=== PATIENT | male | born 1950 | race Caucasian/White ===

== ENCOUNTER 2019-05-12 11:48 | Emergency (ER) | payer BC, MEDICARE ==
[2019-05-12] MEDS ORDERED: Sodium Chloride 0.9% 10 ML Syringe FLUSH PRN (12:07)
[2019-05-12] MEDS ORDERED: diphenhydrAMINE 50 MG/ML SDV IVPUSH ONE (12:16)
[2019-05-12] MEDS ORDERED: Metoclopramide 10 MG/2 ML SDV IVPUSH ONE (12:16)
[2019-05-12] MEDS ORDERED: Ketorolac 30 MG/ML SDV IVPUSH ONE (12:16)
[2019-05-12] MEDS ORDERED: Sodium Chloride 0.9% 1,000 ML IV ONE (12:17)
--- NOTE | 2019-05-12 12:27 | EDM.PDOC ---
ED HPI GENERAL MEDICAL PROBLEM - General Chief Complaint: Headache Stated Complaint: HEADACHE AND BODY ACHES AND DIZZY Time Seen by Provider: 05/12/19 12:02 Source of Information: Reports: Patient, RN Notes Reviewed History Limitations: Reports: No Limitations - History of Present Illness INITIAL COMMENTS - FREE TEXT/NARRATIVE: Patient is a 69-year-old male who presents to the ED for evaluation of a headache, body aches, and generalized dizziness. Patient notes he has been sick for around 2 weeks now. He was initially evaluated by the [facility], and states he was placed on a azithromycin for an unknown reason, but he states he has not felt any better. He complains of a sharp stabbing headache , that is in his temples, and he states when he tries to walk or do any sort of activity, he gets sharp achy pains that radiate up and down his spine and legs. He has a mild fever at time of triage at 99.1 F. He states he does feel chilled at home, and like he just cannot keep warm. He does note that he has been having some issues with generalized dizziness when he stands as well. He was having some diarrhea and vomiting during this time as well, but he has not had any of this for about 3 or 4 days. Patient notes he has prostate cancer and states he is on chemo for this as well. Otherwise he denies any past medical history, surgeries, or allergies. He notes that he does smoke cigars from time to time, but has not had 1 in a while, since he has been feeling ill. He does not complain much for cough. He is not had much of an appetite, but states he has been trying to drink some fluids. He did not get a flu shot this year. Headache Pain Score (Numeric/FACES): 10 - Related Data Allergies Allergy/AdvReac Type Severity Reaction Status Date / Time No Known Allergies Allergy Verified 05/12/19 11:57 Home Meds: Home Meds Abiraterone Acetate [Zytiga] 2 tab PO DAILY 05/12/19 [History] predniSONE [Prednisone] 5 mg PO DAILY 05/12/19 [History] Past Medical History Oncologic (Cancer) History: Reports: Prostate Social & Family History - Tobacco Use Smoking Status *Q: Former Smoker Used Tobacco, but Quit: Yes Month/Year Tobacco Last Used: 2 months - Caffeine Use Caffeine Use: Reports: Coffee, Soda, Tea - Recreational Drug Use Recreational Drug Use: No ED ROS GENERAL - Review of Systems Review Of Systems: See Below Constitutional: Reports: Fever, Chills, Malaise (generalized), Decreased Appetite HEENT: Denies: Throat Pain Respiratory: Reports: Shortness of Breath (mild). Denies: Cough Cardiovascular: Denies: Chest Pain GI/Abdominal: Reports: Diarrhea, Decreased Appetite, Nausea, Vomiting. Denies: Abdominal Pain : Denies: Dysuria, Frequency, Urgency Musculoskeletal: Reports: Back Pain (generalized) Neurological: Reports: Dizziness, Headache. Denies: Confusion - Physical Exam Exam: See Below Exam Limited By: No Limitations General Appearance: Alert, WD/WN, No Apparent Distress Eye Exam: Bilateral Eye: EOMI, Normal Inspection, PERRL Ears: Normal External Exam, Normal Canal, Hearing Grossly Normal, Normal TMs Nose: Normal Inspection Throat/Mouth: Normal Inspection, Normal Lips, Normal Teeth, Normal Gums, Normal Oropharynx (pt has patchy white spots on tongue, states that he has thrush and usually takes nystatin for this.), Normal Voice, No Airway Compromise Head Exam: Atraumatic, Normocephalic Neck: Normal Inspection Respiratory/Chest: No Respiratory Distress, Lungs Clear, No Accessory Muscle Use , Chest Non-Tender, Decreased Breath Sounds (diffuse bilaterally) Cardiovascular: Normal Peripheral Pulses, Regular Rate, Rhythm, No Edema, No Murmur GI/Abdominal: Normal Bowel Sounds, Soft, Non-Tender, No Distention, No Mass Neuro Exam (Abbreviated): Alert, Oriented, Normal Cognition, Normal Gait, No Motor/Sensory Deficits Extremities: Normal Inspection, Normal Capillary Refill Psychiatric: Normal Affect, Normal Mood Skin Exam: Warm, Dry, Intact, Normal Color (skin is slightly dusky in general appearance), No Rash Course - Vital Signs Last Recorded V/S: Last Vital Signs Temp 98.5 F 05/12/19 14:44 Pulse 61 05/12/19 12:02 Resp 20 05/12/19 12:02 BP 150/73 H 05/12/19 12:02 Pulse Ox 95 05/12/19 12:02 Orthostatic Blood Pressure [ 139/74 Standing] Orthostatic Blood Pressure [ 140/77 Sitting] Orthostatic Blood Pressure [ 146/70 Supine] - Orders/Labs/Meds Orders: Active Orders 24 hr Category Date Time Status Orthostatic Vital Signs [RC] ASDIRECTED Care 05/12/19 12:07 Ordered Peripheral IV Care [RC] . DIRECTED Care 05/12/19 12:07 Ordered Sodium Chloride 0.9% [Saline Flush] Med 05/12/19 12:07 Ordered 10 ml FLUSH ASDIRECTED PRN Peripheral IV Insertion Adult [OM.PC] Stat Oth 05/12/19 12:07 Ordered Medication Orders Sodium Chloride (Saline Flush) 10 ml FLUSH ASDIRECTED PRN PRN Reason: Keep Vein Open Last Admin: 05/12/19 12:35 Dose: 10 ml Labs: Laboratory Tests 05/12/19 05/12/19 05/12/19 Range/Units 12: 12:25 15:10 WBC 7.30 (4.23-9.07) K/mm3 RBC 4.10 L (4.63-6.08) M/mm3 Hgb 13.2 L (13.7-17.5) gm/dl Hct 37.5 L (40.1-51.0) % MCV 91.5 (79.0-92.2) fl MCH 32.2 (25.7-32.2) pg MCHC 35.2 (32.2-35.5) g/dl RDW Std Deviation 40.7 (35.1-43.9) fL Plt Count 267 (163-337) K/mm3 MPV 9.0 L (9.4-12.3) fl Neutrophils % (Manual) 74 H (40-60) % Band Neutrophils % 2 (0-10) % Lymphocytes % (Manual) 13 L (20-40) % Atypical Lymphs % 0 % Monocytes % (Manual) 10 (2-10) % Eosinophils % (Manual) 1 (0.8-7.0) % Basophils % (Manual) 0 L (0.2-1.2) Platelet Estimate Adequate RBC Morph Comment Normal Sodium 134 L (136-145) mEq/L Potassium 2.6 L (3.5-5.1) mEq/L Chloride 97 L (98-107) mEq/L Carbon Dioxide 27 (21-32) mEq/L Anion Gap 12.6 (5-15) BUN 12 (7-18) mg/dL Creatinine 0.8 (0.7-1.3) mg/dL Est Cr Clr Drug Dosing 82.63 mL/min Estimated GFR (MDRD) > 60 (>60) mL/min BUN/Creatinine Ratio 15.0 (14-18) Glucose 107 (80-115) mg/dL Calcium 8.2 L (8.5-10.1) mg/dL Total Bilirubin 0.9 (0.2-1.0) mg/dL AST 11 L (15-37) U/L ALT 19 (16-63) U/L Alkaline Phosphatase 63 (46-116) U/L Total Protein 6.6 (6.4-8.2) g/dl Albumin 3.4 (3.4-5.0) g/dl Globulin 3.2 gm/dL Albumin/Globulin Ratio 1.1 (1-2) Urine Color Light yellow (Yellow) Urine Appearance Clear (Clear) Urine pH 7.0 (5.0-8.0) Ur Specific [place] 1.015 (1.005-1.030) Urine Protein Negative (Negative) Urine Glucose (UA) Negative (Negative) Urine Ketones Negative (Negative) Urine Occult Blood 1+ H (Negative) Urine Nitrite Negative (Negative) Urine Bilirubin Negative (Negative) Urine Urobilinogen 0.2 (0.2-1.0) Ur Leukocyte Esterase Negative (Negative) Urine RBC 5-10 H (0-5) /hpf Urine WBC 0-5 (0-5) /hpf Ur Squamous Epith Cells 5-10 H (0-5) /hpf Urine Bacteria Rare (FEW) /hpf Urine Mucus Not seen (FEW) /hpf Meds: Medications Generic Name Dose Route Start Last Admin Trade Name Freq PRN Reason Stop Dose Admin Sodium Chloride 10 ml 05/12/19 12:07 05/12/19 12:35 Saline Flush FLUSH 10 ml ASDIRECTED PRN Administration Keep Vein Open Discontinued Medications Generic Name Dose Route Start Last Admin Trade Name Freq PRN Reason Stop Dose Admin Diphenhydramine HCl 25 mg 05/12/19 12:16 05/12/19 12:35 Benadryl IVPUSH 05/12/19 12:17 25 mg ONETIME ONE Administration Sodium Chloride 1,000 mls @ 999 mls/hr 05/12/19 12:17 05/12/19 12:33 Normal Saline IV 05/12/19 13:17 999 mls/hr ONETIME ONE Administration Potassium Chloride 10 meq/ 0 mls @ 100 mls/hr 05/12/19 13:20 05/12/19 13:34 Premix IV 05/12/19 13:21 100 mls/hr ONETIME ONE Administration Ketorolac Tromethamine 30 mg 05/12/19 12:16 05/12/19 12:33 Toradol IVPUSH 05/12/19 12:17 30 mg ONETIME ONE Administration Metoclopramide HCl 10 mg 05/12/19 12:16 05/12/19 12:33 Reglan IVPUSH 05/12/19 12:17 10 mg ONETIME ONE Administration Potassium Chloride 40 meq 05/12/19 13:19 05/12/19 13:32 Klor-Con M20 PO 05/12/19 13:20 40 meq ONETIME ONE Administration - Re-Assessments/Exams Free Text/Narrative Re-Assessment/Exam: 05/12/19 12:29 Patient presents to the ED for multiple complaints. IV will be placed, orthostatic vital signs will be taken, to determine fluid status, and possible dehydration. CBC, CMP will be drawn as well, IV fluids, 30 mg IV Toradol, 10 mg IV Reglan, and 25 mg IV Benadryl for headache and pain relief. 05/12/19 13:39 Labs are done, patient is negative for influenza at this time, however clinical course was suspicious for more of influenza type illness. Chest x-ray demonstrates no acute abnormality, possible emphysematous change. Patient's white blood cell count is not elevated, hemoglobin mildly low, but not worrisome at this time. Patient's potassium is low at 2.6, he will be given 40 mEq p.o., and 10 mEq IV as well for supplementation. Otherwise labs are essentially within normal limits. Patient notes that he did get good symptomatic relief from the medications given already. 05/12/19 15:44 Patient reassessed at bedside, states he is feeling much better, he did eat a turkey sandwich with no problem while in the ER. Will be discharged home with general recommendations. He was given a educational handout on foods that are rich in potassium for further supplementation. Departure - Departure Time of Disposition: 15:44 Disposition: Home, Self-Care 01 Condition: Fair Clinical Impression: Influenza-like symptoms, Hypokalemia Headache Qualifiers: Headache type: other headache syndrome Qualified Code(s): G44.89 - Other headache syndrome - Discharge Information *PRESCRIPTION DRUG MONITORING PROGRAM REVIEWED*: No *COPY OF PRESCRIPTION DRUG MONITORING REPORT IN PATIENT MEGAN: No Instructions: Dehydration, Adult, [id number] Referrals: Deepak Spaulding MD [Primary Care Provider] - Forms: ED Department Discharge Additional Instructions: You were evaluated in the ER today regarding your generalized dizziness, headache, and body aches. Laboratory evaluation demonstrated that you were negative for influenza, however your symptoms are suspicious for this, your laboratory evaluation demonstrated no acute bacterial infection, but it did demonstrate a low potassium level. You were given 40 mEq p.o. potassium and 10 mEq IV potassium for supplementation. You were also given a educational handout on foods that are rich in potassium, please try to adjust your diet accordingly. Recommend that you follow-up with your regular care provider in the next week or so, and have a metabolic panel redrawn, to make sure that your potassium level is getting back to within normal limits. You may take [id number] ibuprofen 600 mg or Tylenol 500 mg every 6 hours as needed for further symptom relief. Please do not exceed 3200 mg ibuprofen or 4000 mg Tylenol in a 24-hour time span. Please try to increase your oral fluid intake, and try to eat as many nutritious meals as possible as this will help the body heal. Please return to the ER at any time if your symptoms change or worsen. Sepsis Event Note - Evaluation Sepsis Screening Result: No Definite Risk - Focused Exam Vital Signs: Vital Signs Temp Pulse Resp BP Pulse Ox 05/12/19 14:44 98.5 F 05/12/19 13:40 99.9 F 05/12/19 12:30 101 F H 05/12/19 12:02 99.1 F 61 20 150/73 H 95 Date Exam was Performed: 05/12/19 Time Exam was Performed: 15:44 - My Orders Last 24 Hours: My Active Orders 05/12/19 12:07 Orthostatic Vital Signs [RC] ASDIRECTED Peripheral IV Care [RC] . DIRECTED Sodium Chloride 0.9% [Saline Flush] 10 ml FLUSH ASDIRECTED PRN Peripheral IV Insertion Adult [OM.PC] Stat - Assessment/Plan Last 24 Hours: My Active Orders 05/12/19 12:07 Orthostatic Vital Signs [RC] ASDIRECTED Peripheral IV Care [RC] . DIRECTED Sodium Chloride 0.9% [Saline Flush] 10 ml FLUSH ASDIRECTED PRN Peripheral IV Insertion Adult [OM.PC] Stat
[2019-05-12] MEDS ORDERED: Potassium Chloride 20 MEQ Tab.ER PO ONE (13:19)
[2019-05-12] MEDS ORDERED: Potassium Chloride 10 MEQ in Premix Bag 1 BAG IV ONE (13:20)
--- NOTE | 2019-05-12 13:36 | CR ---
Chest: PA and lateral views of the chest were obtained. Comparison: No prior chest imaging. Heart size is at the upper limits of normal. Tortuous thoracic aorta is seen. Lungs are clear with no acute parenchymal change. Lungs are slightly hyperinflated. Scattered disc space narrowing noted within the spine with endplate spurring is seen. Minimal scoliosis is also noted within the spine. Impression: 1. Possible emphysematous change. 2. Nothing acute is appreciated on 2 view chest x-ray. Diagnostic code #2 This report was dictated in [place] Standard Time
== END 2019-05-12 16:08 | disposition home or self-care (01) ==
LOC: JD.ED 11:48
DX: G44.89 Other headache syndrome (principal); E87.6 Hypokalemia; Z87.891 Personal history of nicotine dependence; Z79.899 Other long term (current) drug therapy
CPT/HCPCS: 36415; 71046; 80053; 81001; 85007; 85027; 87804; 96361; 96365; 96375; 99284; A9270; J1200; J1885; J2765; J3480; J7030

== ENCOUNTER 2020-04-01 09:37 | Emergency (ER) | payer BC, MEDICARE ==
--- NOTE | 2020-04-01 10:14 | EDM.PDOC ---
ED HPI GENERAL MEDICAL PROBLEM - General Chief Complaint: Abdominal Pain Stated Complaint: CONSTIPATION Time Seen by Provider: 04/01/20 10:13 Source of Information: Reports: Patient History Limitations: Reports: No Limitations - History of Present Illness INITIAL COMMENTS - FREE TEXT/NARRATIVE: 70-year-old male who is not the best historian presents to the ED complaining of diffuse severe abdominal pain. He thinks that he is constipated because of the pain medications that he has been taking. 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 Apparently this just occurred within the last week or 2. He is taking pain medication for bone metastatic disease. He has not received any radiotherapy. He states he has not had a decent bowel movement for at least 3 days. His appetite remains extremely poor. He is generally weak. He denies any nausea or vomiting. On my assessment he felt mildly warm palpation but he denies any chills at home. On my examination he feels a bit warm to palpation. Onset: Gradual Onset Date: 03/31/20 Duration: Day(s):, Getting Worse Location: Reports: Abdomen ([facility] abdominal pain primarily lower and periumbilical. There is a cramping component or colicky component to the pain but otherwise its constant deep ache) Quality: Reports: Ache, Pressure, Other Severity: Severe (Aching pain mid abdomen) Improves with: Reports: None ( 10 out of 10) Worsens with: Reports: Other Context: Reports: Other (Recently diagnosed with prostate cancer with diffuse metastatic bone disease). Denies: Activity, Exercise (Worse with certain movements and certainly worsens by eating.), Lifting, Sick Contact, Trauma Associated Symptoms: Reports: Cough, Loss of Appetite, Malaise, Nausea/Vomiting. Denies: Confusion, Chest Pain, cough w sputum, Diaphoresis, Fever/Chills, Headaches, Rash, Seizure (Nausea with no vomiting), Shortness of Breath, Syncope Treatments PENSION AGENT: Reports: Other (see below) (I think he is taking a narcotic called Percocet. He is not sure) Bilateral Abdomen Pain Score (Numeric/FACES): 8 - Related Data Allergies Allergy/AdvReac Type Severity Reaction Status Date / Time No Known Allergies Allergy Verified 04/01/20 09:54 Home Meds: Home Meds Abiraterone Acetate [Zytiga] 1,000 mg PO DAILY 04/01/20 [History] Albuterol [Take Home: Albuterol 18 GM, 1 INH Pack] 04/01/20 [History] Ascorbate Calcium [Vitamin C] 500 mg PO DAILY 04/01/20 [History] Budesonide/Formoterol [Symbicort 160-4.5 MCG] 04/01/20 [History] Calcium Carbonate [Calcium] 500 mg PO DAILY 04/01/20 [History] Cefuroxime [Ceftin] 250 mg PO BID 04/01/20 [History] Cholecalciferol (Vitamin D3) [Vitamin D3] 1,000 unit PO DAILY 04/01/20 [History] Famotidine 20 mg PO BID 04/01/20 [History] LORazepam [Lorazepam] 1 mg PO QID PRN 04/01/20 [History] Ondansetron [Ondansetron ODT] 8 mg PO DAILY 04/01/20 [History] Potassium Chloride 40 meq PO DAILY 04/01/20 [History] Tamsulosin HCl 0.4 mg PO BID 04/01/20 [History] predniSONE [Prednisone] 5 mg PO DAILY 04/01/20 [History] traMADol [Ultram] 50 mg PO PRN 04/01/20 [History] Past Medical History Gastrointestinal History: Reports: Chronic Constipation Genitourinary History: Reports: Other (See Below) Other Genitourinary History: chronic indwelling oneil Oncologic (Cancer) History: Reports: Bone, Liver, Prostate (Apparently just diagnosed with prostate cancer with diffuse bone and liver metastatic disease within the last week to 10 days) Social & Family History - Family History Family Medical History: No Pertinent Family History - Caffeine Use Caffeine Use: Reports: Coffee - Recreational Drug Use Recreational Drug Use: No - Living Situation & Occupation Living situation: Reports: Occupation: Unemployed [employer] [facility] - Review of Systems Review Of Systems: See Below Constitutional: Reports: Malaise, Weakness, Fatigue, Decreased Appetite, Weight Loss. Denies: Fever, Chills HEENT: Reports: No Symptoms Respiratory: Reports: Shortness of Breath. Denies: Wheezing, Cough Cardiovascular: Reports: Dyspnea on Exertion, Lightheadedness. Denies: Chest Pain, Blood Pressure Problem, Claudication, Edema, Orthopnea Endocrine: Reports: Fatigue GI/Abdominal: Reports: Abdominal Pain (See history of present illness), Constipation, Decreased Appetite. Denies: Hematemesis, Hematochezia, Melena : Reports: Frequency. Denies: Dysuria Musculoskeletal: Reports: Back Pain, Joint Pain (Ribs and upper and mid back) Skin: Reports: No Symptoms Neurological: Reports: No Symptoms, Weakness (Neurolysed weakness.) Psychiatric: Reports: No Symptoms Hematologic/Lymphatic: Reports: No Symptoms Immunologic: Reports: No Symptoms ED EXAM, GI/ABD - Physical Exam Exam: See Below Exam Limited By: No Limitations (Not the best historian.) General Appearance: Alert, Moderate Distress, Thin, Other (Appears to be in a good deal of pain. Temperature is 36.4 heart rate 99 in sinus respiratory it is 14 BP 109/92 O2 sats 100% on room air.) Eyes: Right: Normal Appearance (Light scleral icterus appreciated.) Throat/Mouth: Other Head: Atraumatic, Normocephalic, Other (Lung is dry and coated) Neck: Normal Inspection, Supple, Non-Tender, Full Range of Motion, Other (No cervical adenopathy). No: Carotid Bruit, Lymphadenopathy (L), Lymphadenopathy (R) Respiratory/Chest: No Respiratory Distress, Lungs Clear, Normal Breath Sounds, Chest Non-Tender Cardiovascular: Normal Peripheral Pulses, No Edema, No Gallop, No Murmur, No Rub, Tachycardia (I got tachycardia of 108/min.) GI/Abdominal Exam: Soft (Sounds are decreased from the norm.), Pelvis Stable, Tender, Abnormal Bowel Sounds, Hepatomegaly (Possible palpable liver fingerbreadths below the right costal margin.). No: Guarding (Is mostly periumbilically and left lower quadrant), Rigid, Rebound Back Exam: Normal Inspection, Decreased Range of Motion. No: CVA Tenderness (L), CVA Tenderness (R) Extremities: Normal Inspection, Normal Range of Motion, Non-Tender, No Pedal Edema Neurological: Alert, Oriented, CN II-XII Intact, Normal Cognition Psychiatric: Normal Affect, Normal Mood Skin Exam: Warm, Dry, Intact, Normal Color, No Rash Course - Vital Signs Last Recorded V/S: Last Vital Signs Temp 36.4 C 04/01/20 09:51 Pulse 99 04/01/20 09:51 Resp 14 04/01/20 09:51 BP 109/92 H 04/01/20 09:51 Pulse Ox 100 04/01/20 09:51 - Orders/Labs/Meds Orders: Active Orders 24 hr Category Date Time Status Abdomen 1V Flat [CR] Stat Exams 04/01/20 10:13 Taken CULTURE BLOOD [BC] Stat Lab 04/01/20 14:12 Received CULTURE BLOOD [BC] Stat Lab 04/01/20 14:19 Received CULTURE URINE [RM] Stat Lab 04/01/20 11:46 Received Dextrose 5%-0.9% NaCl [Dextrose 5%-Normal Saline] 1,000 Med 04/01/20 11:00 Active ml IV ASDIRECTED cefTRIAXone [Rocephin] 2 gm Med 04/01/20 13:30 Active Sodium Chloride 0.9% [Normal Saline] 100 ml IV Q24H Blood Culture x2 Reflex Set [OM.PC] Stat Oth 04/01/20 13:23 Ordered Medication Orders Dextrose/Sodium Chloride (Dextrose 5%-Normal Saline) 1,000 mls @ 999 mls/hr IV ASDIRECTED KIRSTY Last Admin: 04/01/20 11:20 Dose: 999 mls/hr Documented by: ANNABEL Ceftriaxone Sodium 2 gm/ (Sodium Chloride) 100 mls @ 200 mls/hr IV Q24H KIRSTY Last Admin: 04/01/20 13:52 Dose: 200 mls/hr Documented by: BENIGNO Labs: Laboratory Tests 04/01/20 04/01/20 04/01/20 Range/Units 11:20 11:20 11:28 WBC 16.82 H (4.23-9.07) K/mm3 RBC 4.32 L (4.63-6.08) M/mm3 Hgb 13.2 L (13.7-17.5) gm/dl Hct 39.9 L (40.1-51.0) % MCV 92.4 H (79.0-92.2) fl MCH 30.6 (25.7-32.2) pg MCHC 33.1 (32.2-35.5) g/dl RDW Std Deviation 47.2 H (35.1-43.9) fL Plt Count 414 H D (163-337) K/mm3 MPV 9.4 (9.4-12.3) fl Neut % (Auto) 85.1 H (34.0-67.9) % Lymph % (Auto) 6.4 L (21.8-53.1) % Stark % (Auto) 7.6 (5.3-12.2) % Eos % (Auto) 0.4 L (0.8-7.0) Baso % (Auto) 0.1 (0.1-1.2) % Neut # (Auto) 14.33 H (1.78-5.38) K/mm3 Lymph # (Auto) 1.08 L (1.32-3.57) K/mm3 Stark # (Auto) 1.27 H (0.30-0.82) K/mm3 Eos # (Auto) 0.07 (0.04-0.54) K/mm3 Baso # (Auto) 0.01 (0.01-0.08) K/mm3 Manual Slide Review Abnormal smear Sodium 134 L (136-145) mEq/L Potassium 3.4 L (3.5-5.1) mEq/L Chloride 100 (98-107) mEq/L Carbon Dioxide 21 (21-32) mEq/L Anion Gap 16.4 H (5-15) BUN 8 (7-18) mg/dL Creatinine 0.6 L (0.7-1.3) mg/dL Est Cr Clr Drug Dosing TNP Estimated GFR (MDRD) > 60 (>60) mL/min BUN/Creatinine Ratio 13.3 L (14-18) Glucose 92 (80-115) mg/dL Lactic Acid (0.4-2.0) mmol/L Calcium 8.6 (8.5-10.1) mg/dL Total Bilirubin 0.7 (0.2-1.0) mg/dL AST 252 H (15-37) U/L ALT 124 H (16-63) U/L Alkaline Phosphatase 300 H (46-116) U/L C-Reactive Protein 7.5 H* (<1.0) mg/dL Total Protein 6.5 (6.4-8.2) g/dl Albumin 2.5 L (3.4-5.0) g/dl Globulin 4.0 gm/dL Albumin/Globulin Ratio 0.6 L (1-2) Lipase 235 (73-393) U/L Urine Color (Yellow) Urine Appearance (Clear) Urine pH (5.0-8.0) Ur Specific Enders (1.005-1.030) Urine Protein (Negative) Urine Glucose (UA) (Negative) Urine Ketones (Negative) Urine Occult Blood (Negative) Urine Nitrite (Negative) Urine Bilirubin (Negative) Urine Urobilinogen (0.2-1.0) Ur Leukocyte Esterase (Negative) Urine RBC (0-5) /hpf Urine WBC (0-5) /hpf Ur Squamous Epith Cells (0-5) /hpf Urine Bacteria (FEW) /hpf Urine Mucus (FEW) /hpf 04/01/20 04/01/20 Range/Units 11:46 14:12 WBC (4.23-9.07) K/mm3 RBC (4.63-6.08) M/mm3 Hgb (13.7-17.5) gm/dl Hct (40.1-51.0) % MCV (79.0-92.2) fl MCH (25.7-32.2) pg MCHC (32.2-35.5) g/dl RDW Std Deviation (35.1-43.9) fL Plt Count (163-337) K/mm3 MPV (9.4-12.3) fl Neut % (Auto) (34.0-67.9) % Lymph % (Auto) (21.8-53.1) % Stark % (Auto) (5.3-12.2) % Eos % (Auto) (0.8-7.0) Baso % (Auto) (0.1-1.2) % Neut # (Auto) (1.78-5.38) K/mm3 Lymph # (Auto) (1.32-3.57) K/mm3 Stark # (Auto) (0.30-0.82) K/mm3 Eos # (Auto) (0.04-0.54) K/mm3 Baso # (Auto) (0.01-0.08) K/mm3 Manual Slide Review Sodium (136-145) mEq/L Potassium (3.5-5.1) mEq/L Chloride (98-107) mEq/L Carbon Dioxide (21-32) mEq/L Anion Gap (5-15) BUN (7-18) mg/dL Creatinine (0.7-1.3) mg/dL Est Cr Clr Drug Dosing Estimated GFR (MDRD) (>60) mL/min BUN/Creatinine Ratio (14-18) Glucose (80-115) mg/dL Lactic Acid 1.3 (0.4-2.0) mmol/L Calcium (8.5-10.1) mg/dL Total Bilirubin (0.2-1.0) mg/dL AST (15-37) U/L ALT (16-63) U/L Alkaline Phosphatase (46-116) U/L C-Reactive Protein (<1.0) mg/dL Total Protein (6.4-8.2) g/dl Albumin (3.4-5.0) g/dl Globulin gm/dL Albumin/Globulin Ratio (1-2) Lipase (73-393) U/L Urine Color Light yellow (Yellow) Urine Appearance Cloudy H (Clear) Urine pH 7.0 (5.0-8.0) Ur Specific Enders 1.025 (1.005-1.030) Urine Protein 2+ H (Negative) Urine Glucose (UA) Negative (Negative) Urine Ketones 1+ H (Negative) Urine Occult Blood 2+ H (Negative) Urine Nitrite Negative (Negative) Urine Bilirubin 1+ H (Negative) Urine Urobilinogen 0.2 (0.2-1.0) Ur Leukocyte Esterase 3+ H (Negative) Urine RBC 10-20 H (0-5) /hpf Urine WBC 50-75 H (0-5) /hpf Ur Squamous Epith Cells 0-5 (0-5) /hpf Urine Bacteria Moderate H (FEW) /hpf Urine Mucus Not seen (FEW) /hpf Meds: Medications Generic Name Dose Route Start Last Admin Trade Name Freq PRN Reason Stop Dose Admin Dextrose/Sodium Chloride 1,000 mls @ 999 mls/hr 04/01/20 11:00 04/01/20 11:20 Dextrose 5%-Normal Saline IV 999 mls/hr ASDIRECTED KIRSTY Administration Ceftriaxone Sodium 2 gm/ 100 mls @ 200 mls/hr 04/01/20 13:30 04/01/20 13:52 Sodium Chloride IV 200 mls/hr Q24H KIRSTY Administration Discontinued Medications Generic Name Dose Route Start Last Admin Trade Name Freq PRN Reason Stop Dose Admin Acetaminophen 650 mg 04/01/20 13:22 04/01/20 13:53 Tylenol PO 04/01/20 13:23 650 mg NOW STA Administration Hydromorphone HCl 0.5 mg 04/01/20 10:47 04/01/20 11:21 Dilaudid IVPUSH 04/01/20 10:48 0.5 mg ONETIME ONE Administration Ondansetron HCl 4 mg 04/01/20 10:30 04/01/20 10:40 Zofran Odt PO 04/01/20 10:31 4 mg ONETIME ONE Administration - Radiology Interpretation Free Text/Narrative:: 70-year-old male attends the ED due to severe generalized abdominal pain. He believes that he may be constipated because of the medications he is taking for pain. Patient was recently diagnosed with prostate cancer and unfortunately has diffuse metastatic disease including his bones and liver. He believes his pain medication is Percocet tablets. He has not had a bowel movement for 3 days. He is also lost his appetite. He is a poor historian he did not bring his medications with him. He is and lives alone currently unemployed. Plan he feels slightly warm to me. Routine labs will be done including a serum lipase and a urinalysis. He is not coughing or showing other signs of COVID-19 illness. Blood pressure remains at 117/87. KUB to be done. - Re-Assessments/Exams Free Text/Narrative Re-Assessment/Exam: 04/01/20 11:29 KUB reveals no free air. There is gas distending both portions of the small bowel and large bowel with no bowel obstruction. There is a small amount of stool at the hepatic flexure only. No significant constipation. 04/01/20 13:17 White count is elevated at 16.82. There is a left shift of 85.1% neutrophils. Hemoglobin is 13.2 hematocrit is 39.9. Platelet count is elevated at 414,000. The slide shows neutrophilia and lymphopenia. Sodium is 134 with a potassium of 3.4. Chloride 100 with a bicarb of 21. Anion gap is 16.4. BUN is 8 with a creatinine of 0.6. Estimated GFR is greater than 60. BUN/creatinine ratio is 13.3. Glucose 92 calcium 8.6 total bilirubin is 0.7 AST elevated at 252 ALT 124 and alk phos days of 300. Of note the patient is known to have prostate bony metastatic disease. C-reactive protein is elevated at 7.5. Total protein is 6.5 albumin fraction is 2.5 lipase is 235. Urinalysis shows 2+ proteinuria 1+ ketones 2+ occult blood 1+ bilirubin 3+ leukocyte esterase 10-20 red blood cells per high-power field and 50-75 white cells per high-power field. Moderate bacteria appreciated. Urine culture ordered. Patient will have blood cultures x2 and a lactic acid drawn at this time. He would try to like to go home versus staying in the hospital. I will give him Rocephin 2 g IV and Levaquin 500 mg p.o. He will have Tylenol 650 mg p.o. now for fever relief. 04/01/20 14:32 patient will be discharged to home on Levaquin 500 mg once daily with the first tablet provided through the ED now. He will require 1 more tablet daily for another 9 days. This is to clear up suspect pyelonephritis. I try to get a handle on his current home medications so that we may try and alleviate some of his diffuse abdominal pain. He will need to be on MiraLAX powder 17 g daily to prevent constipation from occurring. 04/01/20 15:40 completed his 2 g of Rocephin IV for suspected pyelonephritis. He does not wish to stay in the hospital and will therefore be discharged to home. His med list has now been obtained he is on tramadol for pain relief. There is also prescription written for Ceftin to 50 mg twice daily starting the and therefore he will not need this prescription for Omnicef. This should perform the same function. Departure - Departure Time of Disposition: 15:42 Disposition: Home, Self-Care 01 Condition: Fair Clinical Impression: Upper urinary tract infection, Prostate carcinoma, Pyelonephritis, Abdominal pain - Discharge Information *PRESCRIPTION DRUG MONITORING PROGRAM REVIEWED*: Not Applicable *COPY OF PRESCRIPTION DRUG MONITORING REPORT IN PATIENT MEGAN: Not Applicable Instructions: Urinary Tract Infection, Adult Referrals: Deepak Spaulding MD [Primary Care Provider] - Forms: ED Department Discharge Additional Instructions: Evaluation in the emergency room today in regards to generalized severe abdominal pain and sense of illness. Recently diagnosed with prostate cancer with unfortunate diagnosis of metastatic disease to bone and liver. It also is likely invading portions of the mesentery which lay within the abdominal wall. Treated with IV fluids and pain medicine Dilaudid 0.5 mg IV for pain relief and medicine for nausea relief. Lab test revealed that you have a significant urinary tract infection involving the kidneys which is giving fever making you feel ill. Therefore you were given first dose of antibiotics Rocephin 2 g intravenously while in the department. Your medication list suggest that you were supposed to be on antibiotic called Ceftin to 50 mg twice daily which is for urinary tract infection. This should be started tomorrow as you have had sufficient antibiotic for today. Plenty of fluids and act diet as tolerated. Zofran 4 mg under the tongue every 4-6 hours necessary for nausea relief. May continue to use tramadol tablets as needed for pain relief. I have also written a prescription for Percocet tablets 5/325 mg strength 1 tablet every 4-6 hours for pain relief which is much stronger than tramadol. You should start a stool softener called MiraLAX 17 g mixed once daily with any juice of choice which will prevent constipation from occurring. Follow-up with personal care physician next week as planned Sepsis Event Note (ED) - Evaluation Sepsis Screening Result: No Definite Risk - Focused Exam Vital Signs: Vital Signs Temp Pulse Resp BP Pulse Ox 04/01/20 09:51 36.4 C 99 14 109/92 H 100 - My Orders Last 24 Hours: My Active Orders 04/01/20 10:13 Abdomen 1V Flat [CR] Stat 04/01/20 11:00 Dextrose 5%-0.9% NaCl [Dextrose 5%-Normal Saline] 1,000 ml IV ASDIRECTED 04/01/20 11:46 CULTURE URINE [RM] Stat 04/01/20 13:23 Blood Culture x2 Reflex Set [OM.PC] Stat 04/01/20 13:30 cefTRIAXone [Rocephin] 2 gm Sodium Chloride 0.9% [Normal Saline] 100 ml IV Q24H 04/01/20 14:12 CULTURE BLOOD [BC] Stat 04/01/20 14:19 CULTURE BLOOD [BC] Stat - Assessment/Plan Last 24 Hours: My Active Orders 04/01/20 10:13 Abdomen 1V Flat [CR] Stat 04/01/20 11:00 Dextrose 5%-0.9% NaCl [Dextrose 5%-Normal Saline] 1,000 ml IV ASDIRECTED 04/01/20 11:46 CULTURE URINE [RM] Stat 04/01/20 13:23 Blood Culture x2 Reflex Set [OM.PC] Stat 04/01/20 13:30 cefTRIAXone [Rocephin] 2 gm Sodium Chloride 0.9% [Normal Saline] 100 ml IV Q24H 04/01/20 14:12 CULTURE BLOOD [BC] Stat 04/01/20 14:19 CULTURE BLOOD [BC] Stat
[2020-04-01] MEDS ORDERED: Ondansetron 4 MG Tab.DIS PO ONE (10:30)
[2020-04-01] MEDS ORDERED: HYDROmorphone 0.5 MG/0.5 ML Syringe IVPUSH ONE (10:47)
[2020-04-01] MEDS ORDERED: Dextrose 5%-0.9% NaCl 1,000 ML IV SCH (11:00)
[2020-04-01] MEDS ORDERED: Acetaminophen 325 MG Tab PO STA (13:22)
[2020-04-01] MEDS ORDERED: cefTRIAXone 2 GM in Sodium Chloride 0.9% 100 ML IV SCH (13:30)
--- NOTE | 2020-04-03 10:04 | CR ---
PROCEDURE INFORMATION: Exam: XR Abdomen, 1 View Exam date and time: 04/01/2020 11:04 AM Age: 70 years old Clinical indication: Pain; Other: Diffuse abdominal discomfort. Constipation. TECHNIQUE: Imaging protocol: XR of the abdomen. Views: Frontal supine view of the abdomen. 1 View. COMPARISON: No relevant prior studies available. FINDINGS: Gastrointestinal tract: Normal. No bowel dilation. Bones/joints: Unremarkable. IMPRESSION: Nonspecific bowel gas pattern. No obstruction or free air identified. Thank you for allowing us to participate in the care of your patient. Dictated and Authenticated by: Ruperto Kauffman MD 04/01/2020 12:16 PM Central Time ([place] & [place]) VERA
== END 2020-04-01 16:17 | disposition home or self-care (01) ==
LOC: JD.ED 09:37
DX: N12 Tubulo-interstitial nephritis, not specified as acute or chronic (principal); C61 Malignant neoplasm of prostate; N39.0 Urinary tract infection, site not specified; R53.1 Weakness; R07.81 Pleurodynia; M54.6 Pain in thoracic spine
CPT/HCPCS: 36415; 74018; 80053; 81001; 83605; 83690; 85025; 86140; 87040; 87086; 87088; 87184; 87186; 96365; 96375; 99283; A9270; J0696; J1170; J7042; J7050; 99284